=== PATIENT | female | born 1960 | race African-American/Black ===

== ENCOUNTER 2024-11-09 20:40 | Inpatient (IN) | payer MEDICAID ==
[~2024-11-09] VITALS: Ht 160 cm; Wt 99.5 kg
[2024-11-09 20:47] VITALS: O2SAT 99
[2024-11-09] MEDS ORDERED: MECLIZINE 25MG TABLET PO ONE (21:15)
[2024-11-09 21:31] LABS: BASOPHILS % 0.3 % (0.0-2.0); EOSINOPHILS % 1.4 % (0.0-5.0); HEMATOCRIT. 46.7 % (36.0-48.0); LYMPHOCYTES % 25.9 % (20.0-50.0); MEAN CORPUSCULAR HGB CONC 34.3 g/dL (31.0-37.0); MEAN CORPUSCULAR VOLUME 87.6 fL (81.0-99.0); MEAN PLATELET VOLUME 8.2 fl (7.4-10.4); NEUTROPHILS % 68.4 % (40.0-76.0); PLATELET 253 x1000/uL (130-400); RED BLOOD CELL COUNT 5.33 mill/uL (4.2-5.4); RED CELL DISTRIBUTION WIDTH 13.8 % (11.6-14.6); WHITE BLOOD COUNT 16.1 x1000/uL (4.5-11.0)
[2024-11-09 21:42] LABS: CHLORIDE 103 mEq/L (98-107); POTASSIUM 3.5 mEq/L (3.5-5.1); SODIUM 139 mEq/L (136-145)
[2024-11-09 21:43] LABS: CALCIUM 9.4 mg/dL (8.7-10.4); CARBON DIOXIDE 26 mEq/L (21-32)
[2024-11-09 21:48] LABS: CREATININE 1.1 mg/dL (0.6-1.0); GLUCOSE 235 mg/dL (70-105); UREA NITROGEN BLOOD 10 mg/dL (9-23)
[2024-11-09 21:49] LABS: TROPONIN I HIGH SENSITIVITY 4 ng/L (3.0-34)
[2024-11-09 21:50] LABS: ALANINE AMINOTRANSFERASE 35 IU/L (10-49); ALBUMIN 4.4 g/dL (3.2-4.8); ASPARTATE AMINOTRANSFERASE 29 IU/L (<34); BILIRUBIN DIRECT 0.2 mg/dL (<=3.0); BILIRUBIN TOTAL 0.9 mg/dL (0.1-1.0); PROTEIN TOTAL 7.7 g/dL (6.0-8.3); PROTHROMBIN TIME 10.9 sec (9.6-11.0)
[2024-11-09] MEDS: DILTIAZEM HCL 5MG/ML 5ML VIAL IV ONE (22:36)
[2024-11-09] MEDS: ONDANSETRON HCL 4MG/2ML INJ IV ONE (22:36)
[2024-11-09] MEDS: FAMOTIDINE 20MG/2ML VIAL IV ONE (22:36)
[2024-11-09] MEDS: MECLIZINE 25MG TABLET PO NR (22:52)
[2024-11-09] MEDS ORDERED: DILTIAZEM HCL 5MG/ML 5ML VIAL IV ONE (23:00)
[2024-11-10] VITALS (8 sets, daily range): BP systolic 140–195; BP diastolic 61–99; PULSE 69–130; RESP 18–20; TEMP 36.1–37.2; O2SAT 94–98
[2024-11-10] MEDS: ONDANSETRON HCL 4MG/2ML INJ IV PRN (01:48)
[2024-11-10] MEDS: HYDRALAZINE 20MG/ML VIAL IV PRN (01:48)
[2024-11-10] MEDS: SODIUM CHLORIDE 0.9% 1,000 ML IV SCH (01:58)
[2024-11-10 07:08] LABS: HEMATOCRIT. 45.3 % (36.0-48.0); HEMOGLOBIN. 15.5 g/dL (12.0-16.0); MEAN CORPUSCULAR HEMOGLOBIN 29.4 pg (28.0-32.0); MEAN CORPUSCULAR HGB CONC 34.2 g/dL (31.0-37.0); MEAN CORPUSCULAR VOLUME 86.2 fL (81.0-99.0); MEAN PLATELET VOLUME 8.5 fl (7.4-10.4); PLATELET 209 x1000/uL (130-400); RED BLOOD CELL COUNT 5.26 mill/uL (4.2-5.4); RED CELL DISTRIBUTION WIDTH 13.9 % (11.6-14.6); WHITE BLOOD COUNT 13.3 x1000/uL (4.5-11.0)
[2024-11-10 07:21] LABS: POTASSIUM 4.3 mEq/L (3.5-5.1)
[2024-11-10 07:22] LABS: CALCIUM 9.6 mg/dL (8.7-10.4)
[2024-11-10 07:27] LABS: CREATININE 1.3 mg/dL (0.6-1.0)
[2024-11-10 07:41] LABS: DIFFERENTIAL COMMENT 1
[2024-11-10] MEDS: AMLODIPINE 10MG TABLET PO SCH (14:08)
[2024-11-10 15:19] LABS: CLARITY URINE CLEAR (CLEAR); COLOR URINE YELLOW (YELLOW); GLUCOSE URINE 2+ (NEGATIVE); KETONES URINE TRACE (NEGATIVE); LEUKOCYTE ESTERASE URINE NEGATIVE (NEGATIVE); NITRITE URINE NEGATIVE (NEGATIVE); OCCULT BLOOD URINE NEGATIVE (NEGATIVE); PH URINE 6.5 (4.5-8.0); PROTEIN URINE 2+ (NEGATIVE); SPECIFIC GRAVITY URINE 1.021 (1.005-1.030)
[2024-11-10 16:00] LABS: BACTERIA URINE 1+; RBC URINE 0-2 /hpf (0-2); SQUAMOUS EPITHELIAL CELL URINE FEW /lpf (RARE/1+); WBC URINE 0-2 /hpf (0-2)
[2024-11-10] MEDS ORDERED: ASPI-864 MT (16:23)
[2024-11-10] MEDS ORDERED: AMLO10TA80 MT (16:23)
[2024-11-10] MEDS ORDERED: LISI20TA31 MT (16:23)
[2024-11-10] MEDS ORDERED: ATOR-2 MT (16:23)
[2024-11-10] MEDS ORDERED: METF-415 MT (16:23)
[2024-11-10 21:04] LABS: PLATELET ESTIMATE NORMAL
[2024-11-10] MEDS: CLONIDINE 0.2MG TABLET PO PRN (21:49)
[2024-11-11] VITALS: BP 155/61; PULSE 82; RESP 18; TEMP 36.7; O2SAT 96
[2024-11-11 04:00] VITALS: BP 148/61; PULSE 87; RESP 20; TEMP 36.7; O2SAT 97
[2024-11-11] MEDS: ACETAMINOPHEN 325MG TABLET PO PRN (05:20)
[2024-11-11 08:00] VITALS: BP 149/76; PULSE 83; RESP 18; TEMP 37.5; O2SAT 96
[2024-11-11 12:00] VITALS: BP 170/78; PULSE 77; RESP 18; TEMP 36.3; O2SAT 96
[2024-11-11] MEDS: TRAMADOL 50MG TABLET PO PRN (13:08)
[2024-11-11] MEDS: MECLIZINE 25MG TABLET PO NR (14:32)
[2024-11-11] MEDS: HYDRALAZINE HCL 100MG TABLET PO NR (14:33)
[2024-11-11 16:00] VITALS: BP 113/49; PULSE 62; RESP 18; TEMP 36.4; O2SAT 96
[2024-11-11 20:00] VITALS: BP 132/67; PULSE 70; RESP 18; TEMP 37.2; O2SAT 99
[2024-11-11] MEDS: HYDRALAZINE HCL 100MG TABLET PO SCH (20:37)
[2024-11-12] VITALS: BP 148/79; PULSE 71; RESP 18; TEMP 37.2; O2SAT 99
[2024-11-12 04:00] VITALS: BP 166/79; PULSE 78; RESP 18; TEMP 36.9; O2SAT 98
[2024-11-12 08:00] VITALS: BP 163/73; PULSE 67; RESP 17; TEMP 36.7; O2SAT 94
[2024-11-12 12:00] VITALS: BP 167/72; PULSE 69; RESP 18; TEMP 36.6; O2SAT 95
[2024-11-12 16:00] VITALS: BP 164/75; PULSE 70; RESP 15; TEMP 36.3; O2SAT 95
[2024-11-12] MEDS ORDERED: NALOXONE HCL 0.4MG/ML VIAL IV PRN (17:30)
[2024-11-12 20:00] VITALS: BP 184/83; PULSE 69; RESP 20; TEMP 36.7; O2SAT 96
[2024-11-13] VITALS: BP 172/73; PULSE 61; RESP 20; TEMP 36.5; O2SAT 94
[2024-11-13 04:00] VITALS: BP 182/74; PULSE 66; RESP 20; TEMP 36.5; O2SAT 99
[2024-11-13] MEDS: HYDRALAZINE 20MG/ML VIAL IV PRN (04:30)
[2024-11-13 08:00] VITALS: BP 163/68; PULSE 79; RESP 20; TEMP 35.9; O2SAT 96
[2024-11-13 12:00] VITALS: BP 176/78; PULSE 71; RESP 22; TEMP 36.2; O2SAT 95
[2024-11-13 16:00] VITALS: BP 167/62; PULSE 69; RESP 18; TEMP 36.5; O2SAT 95
[2024-11-13 16:24] LABS: BASOPHILS % 0.2 % (0.0-2.0); EOSINOPHILS % 0.2 % (0.0-5.0); HEMATOCRIT. 45.5 % (36.0-48.0); HEMOGLOBIN. 15.6 g/dL (12.0-16.0); LYMPHOCYTES % 14.7 % (20.0-50.0); MEAN CORPUSCULAR HEMOGLOBIN 29.7 pg (28.0-32.0); MEAN CORPUSCULAR HGB CONC 34.3 g/dL (31.0-37.0); MEAN CORPUSCULAR VOLUME 86.5 fL (81.0-99.0); MEAN PLATELET VOLUME 7.9 fl (7.4-10.4); MONOCYTES % 6.8 % (2.0-8.0); NEUTROPHILS % 78.1 % (40.0-76.0); PLATELET 220 x1000/uL (130-400); RED BLOOD CELL COUNT 5.26 mill/uL (4.2-5.4); RED CELL DISTRIBUTION WIDTH 13.6 % (11.6-14.6); WHITE BLOOD COUNT 13.4 x1000/uL (4.5-11.0)
[2024-11-13 16:32] LABS: CHLORIDE 100 mEq/L (98-107); POTASSIUM 3.7 mEq/L (3.5-5.1); SODIUM 137 mEq/L (136-145)
[2024-11-13 16:33] LABS: CALCIUM 9.5 mg/dL (8.7-10.4); CARBON DIOXIDE 26 mEq/L (21-32)
[2024-11-13 16:38] LABS: GLUCOSE 167 mg/dL (70-105); UREA NITROGEN BLOOD 14 mg/dL (9-23)
[2024-11-13 16:40] LABS: ALANINE AMINOTRANSFERASE 23 IU/L (10-49); ALBUMIN 4.4 g/dL (3.2-4.8); ASPARTATE AMINOTRANSFERASE 25 IU/L (<34)
[2024-11-13 16:41] LABS: BILIRUBIN TOTAL 1.1 mg/dL (0.1-1.0); PROTEIN TOTAL 7.7 g/dL (6.0-8.3)
[2024-11-13] MEDS: ASPIRIN 81MG EC TABLET PO SCH (19:09)
[2024-11-13] MEDS: ENOXAPARIN 40MG/0.4ML SYR SUBCUT SCH (19:10)
[2024-11-13 20:34] VITALS: BP 182/81; PULSE 64; RESP 19; TEMP 36.4; O2SAT 97
[2024-11-14] VITALS (8 sets, daily range): BP systolic 135–187; BP diastolic 57–99; PULSE 56–99; RESP 18–19; TEMP 36.6–37; O2SAT 95–100
[2024-11-14] MEDS: DILTIAZEM HCL 5MG/ML 5ML VIAL IV NR (00:03)
[2024-11-14] MEDS: DILTIAZEM HCL 60MG TABLET PO SCH (05:45)
[2024-11-14] MEDS: LEVETIRACETAM 500MG TABLET PO SCH (20:56)
[2024-11-14] MEDS: ATORVASTATIN CALCIUM 40MG TABLET PO SCH (20:56)
[2024-11-15] VITALS: BP 166/66; PULSE 57; RESP 19; TEMP 36.7; O2SAT 99
[2024-11-15 04:00] VITALS: BP 191/80; PULSE 61; RESP 16; TEMP 36.4; O2SAT 95
[2024-11-15 08:07] VITALS: BP 173/73; PULSE 65; RESP 20; TEMP 36.7; O2SAT 95
[2024-11-15 12:04] VITALS: BP 151/59; PULSE 62; RESP 18; TEMP 36.7; O2SAT 95
[2024-11-15] MEDS: CLONIDINE 0.1MG TABLET PO SCH (14:05)
[2024-11-15 15:41] VITALS: BP 170/66; PULSE 65; RESP 19; TEMP 36.8; O2SAT 94
[2024-11-15 20:00] VITALS: BP 161/66; PULSE 60; RESP 19; TEMP 36.8; O2SAT 98
[2024-11-16] VITALS: BP 167/65; PULSE 68; RESP 19; TEMP 36.8; O2SAT 98
[2024-11-16] MEDS: METOPROLOL TARTRATE 5MG/5ML VIAL IV NR (03:48)
[2024-11-16 04:00] VITALS: BP 182/97; PULSE 161; RESP 19; TEMP 36.8; O2SAT 96
[2024-11-16 08:00] VITALS: BP 156/69; PULSE 79; RESP 18; TEMP 36.2; O2SAT 100
[2024-11-16] MEDS: METOPROLOL TARTRATE 50MG TABLET PO SCH (09:14)
[2024-11-16 12:00] VITALS: BP 118/69; PULSE 89; RESP 18; TEMP 36.4; O2SAT 97
[2024-11-16] MEDS ORDERED: GADOTERATE MEGLUMINE 5 MMOL/10 ML VIAL IV ONE (14:05)
[2024-11-16 16:00] VITALS: BP 147/63; PULSE 63; RESP 20; TEMP 36.3; O2SAT 98
[2024-11-16 20:00] VITALS: BP 192/81; PULSE 72; RESP 18; TEMP 37.7; O2SAT 97
[2024-11-17] VITALS (7 sets, daily range): BP systolic 114–177; BP diastolic 58–72; PULSE 49–74; RESP 18–20; TEMP 35.7–37.6; O2SAT 96–99
[2024-11-18] VITALS: BP 150/65; PULSE 54; RESP 18; TEMP 36.7; O2SAT 98
[2024-11-18 04:00] VITALS: BP 152/63; PULSE 60; RESP 18; TEMP 36.5; O2SAT 97
[2024-11-18 08:00] VITALS: BP 162/70; PULSE 63; RESP 16; TEMP 36.6; O2SAT 99
[2024-11-18 12:15] VITALS: BP 155/64; PULSE 61; RESP 18; TEMP 36.5; O2SAT 96
[2024-11-18 16:00] VITALS: BP 154/71; PULSE 72; RESP 16; TEMP 36.6; O2SAT 97
[2024-11-18 20:00] VITALS: BP 180/72; PULSE 64; RESP 18; TEMP 37.1; O2SAT 98
[2024-11-19] VITALS: BP 150/58; PULSE 60; RESP 18; TEMP 36.6; O2SAT 97
[2024-11-19 01:29] LABS: BASOPHILS % 0.4 % (0.0-2.0); EOSINOPHILS % 0.9 % (0.0-5.0); HEMATOCRIT. 43.6 % (36.0-48.0); LYMPHOCYTES % 14.6 % (20.0-50.0); MEAN CORPUSCULAR HGB CONC 34.5 g/dL (31.0-37.0); MEAN PLATELET VOLUME 8.4 fl (7.4-10.4); MONOCYTES % 9.2 % (2.0-8.0); NEUTROPHILS % 74.9 % (40.0-76.0); PLATELET 230 x1000/uL (130-400); RED BLOOD CELL COUNT 5.01 mill/uL (4.2-5.4); RED CELL DISTRIBUTION WIDTH 13.6 % (11.6-14.6); WHITE BLOOD COUNT 14.3 x1000/uL (4.5-11.0)
[2024-11-19 01:41] LABS: CHLORIDE 100 mEq/L (98-107); POTASSIUM 3.9 mEq/L (3.5-5.1); SODIUM 136 mEq/L (136-145)
[2024-11-19 01:42] LABS: CARBON DIOXIDE 29 mEq/L (21-32)
[2024-11-19 01:47] LABS: CREATININE 0.9 mg/dL (0.6-1.0); GLUCOSE 223 mg/dL (70-105); UREA NITROGEN BLOOD 18 mg/dL (9-23)
[2024-11-19 04:00] VITALS: BP 164/96; PULSE 60; RESP 18; TEMP 36.8; O2SAT 97
[2024-11-19 05:20] VITALS: BP 176/66; PULSE 72; RESP 20; TEMP 37.1; O2SAT 97
[2024-11-19 08:09] VITALS: BP 167/68; PULSE 55; RESP 19; TEMP 36.6; O2SAT 95
[2024-11-19 11:56] VITALS: BP 186/71; PULSE 72; RESP 19; TEMP 36.8; O2SAT 97
[2024-11-19 13:47] VITALS: PULSE 72
[2024-11-19] MEDS: LOSARTAN 100 MG TABLET PO NR (14:18)
[2024-11-19] MEDS: HYDRALAZINE 20MG/ML VIAL IV NR (15:43)
== END 2024-11-19 16:51 | disposition short-term general hospital (02) | DRG 720 ==
LOC: ER 20:40 → 7WST 22:52 → EDBEDREQ 23:12 → EDBEDREQTM 23:12
PROVIDERS: ADMIT Internal Medicine; ATTEND Internal Medicine
DX: A41.9 Sepsis, unspecified organism (principal); I63.9 Cerebral infarction, unspecified; G93.6 Cerebral edema; E11.65 Type 2 diabetes mellitus with hyperglycemia; G90.89 Other disorders of autonomic nervous system; I48.91 Unspecified atrial fibrillation; E66.01 Morbid (severe) obesity due to excess calories; I10 Essential (primary) hypertension; I16.0 Hypertensive urgency; K52.9 Noninfective gastroenteritis and colitis, unspecified; E78.5 Hyperlipidemia, unspecified; N39.0 Urinary tract infection, site not specified; Z68.36 Body mass index [BMI] 36.0-36.9, adult; Z79.84 Long term (current) use of oral hypoglycemic drugs; Z79.899 Other long term (current) drug therapy
CPT/HCPCS: 36415; 70544; 70551; 70552; 70553; 71045; 80048; 80053; 80061; 80076; 81003; 82962; 83036; 83880; 84484; 85025; 93005; 96374; 96375; 97162; 97166; 99291; A9577; J0360; J1650; J2405; J3490; J8597